=== PATIENT | male | born 1935 | race Caucasian/White ===

== ENCOUNTER 2016-05-09 08:25 | Emergency (ER) | payer OTHER ==
[2016-05-09] MEDS ORDERED: HYDROmorphone 0.5 MG/0.5 ML Syringe IVPUSH ONE (08:36)
[2016-05-09] MEDS ORDERED: Metoclopramide 10 MG/2 ML SDV IVPUSH ONE (08:36)
--- NOTE | 2016-05-09 08:37 | EDM.PDOC ---
ED HPI Trauma - General Chief Complaint: Trauma Stated Complaint: L SHOULDER INJURY Time Seen by Provider: 05/09/16 08:35 Source: Reports: Patient History Limitations: Reports: No limitations - History of Present Illness INITIAL COMMENTS - FREE TEXT/NARRATIVE: 80-year-old male presents the ED after slipping and falling on ice outside his home this morning. He fell hard on the left side of his shoulder. Obvious dislocation of the anterior aspect of his left shoulder. He states that he did not hit his head there was no loss of consciousness. He denies any rib pain or trouble breathing. No pain in his mid back or lower back or left hip. He walked in the is if he was in no pain at all. He was waiting for the bus to pick him up to take him to [place] for his eye appointment. Sees Dr. 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 He was to catch a bus to [place] for a clinic appointment when he slipped and fell on the ice. Symptom Onset Date: 05/09/16 Symptom Onset Time: 07:45 Occurred When: just prior to arrival Occurred Where: other Method of Injury: fall Severity: moderate Pain/Injury Location: Reports: upper extremity, left (Left shoulder) Consciousness: Reports: no loss of consciousness, remembers incident Associated Symptoms: Reports: no other symptoms Allergies/ADRs: Allergies No Known Allergies Allergy (Verified 05/09/16 08:53) Home Medications: Ambulatory Orders Aspirin [Ecotrin] 1 tab PO DAILY 05/09/16 [Confirmed 05/09/16] Cholecalciferol (Vitamin D3) [D3 Dots] 1 tab PO DAILY 05/09/16 [Confirmed ] Dextran 70/Hypromellose [Artificial Tears] 2 drop EYEBOTH DAILY 05/09/16 [ Confirmed 05/09/16] Fluticasone Propionate [Flovent] 2 spray NASBOTH DAILY 05/09/16 [Confirmed 05/09] Latanoprost [Xalatan 0.005% Ophth Soln] 2.5 ml EYEBOTH BEDTIME 05/09/16 [ Confirmed 05/09/16] Lisinopril [Prinivil] 20 mg PO DAILY 05/09/16 [Confirmed 05/09/16] Multivitamin [Multivitamins] 1 tab PO DAILY 05/09/16 [Confirmed 05/09/16] Mupirocin 1 applic TOP BID 05/09/16 [Confirmed 05/09/16] Omeprazole 20 mg PO DAILY 05/09/16 [Confirmed 05/09/16] Psyllium [Metamucil] 0.52 gm PO DAILY 05/09/16 [Confirmed 05/09/16] Ranitidine [Zantac] 150 mg PO DAILY 05/09/16 [Confirmed 05/09/16] oxyCODONE HCl/Acetaminophen [Percocet 5-325 mg Tablet] 1 - 2 each PO Q4H PRN # 16 tablet 05/09/16 Past Medical History HEENT History: Reports: Glaucoma, Other (see below) (Excision of lesion right conjunctiva with some concerns of malignancy. This put drops in his eyes 4 times daily for 4 months. In fact this is where he was going today to see Dr. 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 in [place] by bus.) Cardiovascular History: Reports: Hypertension Genitourinary History: Reports: BPH, Other (see below) (Nocturia usually 3 or 4 times daily nightly.) Musculoskeletal History: Reports: Arthritis, Back pain, chronic, Neck pain, chronic (Neck bothers him at x2), Osteoarthritis (Involving his knees and hips.) Social & Family History - Living Situation & Occupation Occupation: retired Review of Systems - Review of Systems Review Of Systems: See Below Constitutional: Denies: chills, diaphoresis, fever, weakness Eyes: Reports: no symptoms Ears: Reports: no symptoms Nose: Reports: no symptoms Mouth/Throat: Reports: no symptoms Respiratory: Reports: No Symptoms Cardiovascular: Reports: no symptoms GI/Abdominal: Reports: No symptoms Genitourinary: Reports: other Musculoskeletal: Reports: shoulder pain (Left side see history present illness) , arm pain Skin: Reports: no symptoms Neurological: Reports: No Symptoms (Urinary frequency. No treated for x3) Psychiatric: Reports: no symptoms Trauma Exam - Physical Exam Exam: See Below Exam Limited By: No limitations General Appearance: Reports: alert, WD/WN, no apparent distress Head: Reports: atraumatic, normocephalic Throat/Mouth: Reports: Normal inspection, Normal lips, Normal teeth, Normal gums , Normal oropharynx Neck: Reports: non-tender, full range of motion, normal alignment, normal inspection Respiratory Exam: Reports: no respiratory distress, lungs clear (Decreased breath sounds to both posterior lung corrales.), no accessory muscle use, chest non-tender, decreased breath sounds. Denies: rales, rhonchi, wheezing Cardiovascular: Reports: regular rate, rhythm, no edema, no gallop, no murmur, no rub GI/Abdominal: Reports: normal bowel sounds, soft, non tender, no organomegaly, other (Scaphoid abdomen) Extremities: Reports: other (Obvious anterior dislocation of the left humerus. The distal radial and ulnar pulses present. Has some paresthesias in the distribution of the median nerve in the right hand.) Neurologic: Reports: alert, normal mood/affect, oriented x 3 Skin: Reports: Normal color, Warm/dry - Vincenzo Coma Score Best Eye Response (Vincenzo): (4) open spontaneously Best Verbal Response (Vincenzo): (5) oriented Best Motor Response (Vincenzo): (6) obeys commands Vincenzo Total: 15 ED TRAUMA EXTREMITY PROCEDURES - Joint Reduction Site: shoulder (L) Sedation: conscious sedation Technique: traction/counter traction Number of Attempts: 1 Post-reduction imaging: completely reduced Joint Reduction Complications: No ED PROCEDURAL SEDATION - Pre Procedure Indications: shoulder dislocation Preparations: procedure explained, consent signed, oxygen, continuous pulse oximeter, suction, continuous electronic device monitor, constant attendance - Physical Exam Airway: normal anatomy Cardiovascular: normal heart sounds Respiratory: normal breath sounds Neurological: alert, mild distress Meilampati Classification: 1 (soft palate, anterior/posterior tonsillar pillars , uvula visible) - Procedure Sedation Sedation: versed (parenteral) (3 mg), fentanyl (100 mcg) ASA Classification: 2 (Patient with a mild systemic disease) - Intra Procedure Condition during procedure: moderately sedated Complications: none Reversal: none - Post Procedure Condition after procedure: lethargic - Discharge Condition Patient returned to pre-procedure baseline: Yes Alert prior to discharge: Yes Ambulatory with assistance: Yes Vital signs normal: Yes Time spent with sedated patient: 10 min Course - Vital Signs Last Recorded V/S: Last Vital Signs Temp 36.4 C 05/09/16 08:54 Pulse 58 L 05/09/16 08:54 Resp 18 05/09/16 08:54 BP 142/73 H 05/09/16 08:54 Pulse Ox 100 05/09/16 08:54 - Orders/Labs/Meds Orders: Active Orders 24 hr Category Date Time Status Shoulder Comp Lt [CR] Stat Exams 05/09/16 08:36 Taken Shoulder Comp Lt [CR] Stat Exams 05/09/16 09:25 Taken Sodium Chloride 0.9% [Normal Saline] 1,000 ml Med 05/09/16 08:45 Active IV ASDIRECTED Medication Orders Sodium Chloride (Normal Saline) 1,000 mls @ 125 mls/hr IV ASDIRECTED LUZ Meds: Medications Generic Name Dose Route Start Last Admin Trade Name Freq PRN Reason Stop Dose Admin Sodium Chloride 1,000 mls @ 125 mls/hr 05/09/16 08:45 Normal Saline IV ASDIRECTED LUZ Discontinued Medications Generic Name Dose Route Start Last Admin Trade Name Freq PRN Reason Stop Dose Admin Fentanyl 100 mcg 05/09/16 08:40 05/09/16 09:00 Sublimaze IVPUSH 05/09/16 08:41 100 mcg ONETIME ONE Administration Hydromorphone HCl 0.5 mg 05/09/16 08:36 05/09/16 08:45 Dilaudid IVPUSH 05/09/16 08:37 0.5 mg ONETIME ONE Administration Metoclopramide HCl 7.5 mg 05/09/16 08:36 05/09/16 09:00 Reglan IVPUSH 05/09/16 08:37 7.5 mg ONETIME ONE Administration Midazolam HCl 5 mg 05/09/16 08:40 05/09/16 09:13 Versed 1 Mg/Ml IVPUSH 05/09/16 08:41 Not Given ONETIME ONE Midazolam HCl Confirm 05/09/16 08:45 05/09/16 09:14 Versed 1 Mg/Ml Administered 05/09/16 08:46 Not Given Dose 2 mg .ROUTE .STK-MED ONE Midazolam HCl Confirm 05/09/16 08:59 05/09/16 09:14 Versed 1 Mg/Ml Administered 05/09/16 09:00 Not Given Dose 6 mg .ROUTE .STK-MED ONE Midazolam HCl 4 mg 05/09/16 09:00 05/09/16 09:00 Versed 1 Mg/Ml IVPUSH 05/09/16 09:01 4 mg ONETIME ONE Administration - Radiology Interpretation Free Text/Narrative:: 80-year-old male presents the ED after slipping and falling on the ice. He has suffered a valgus injury to his left shoulder. Clinically it appears to be anteriorly dislocated. Plan IV Dilaudid 0.5 mg IV with Reglan 7.5 mg IV. He had a couple pieces of toast about 0630 hours this morning. X-rays of the shoulder will be done to confirm no fractures before manipulation as carried out. Tentatively he'll require manipulation and reduction of the dislocation under conscious sedation with the use of fentanyl and Versed. - Re-Assessments/Exams Free Text/Narrative Re-Assessment/Exam: 05/09/16: 0950: Postreduction films revealed return of to anatomical position of his left humeral head. There are degenerative changes along the in Aspect of the glenoid and possible mild glenoid tear in this area. There is mild arthritic changes at the acromioclavicular joint as well. He is recovered well from the conscious sedation drinking fluids and speaks completely normally. He will be placed in a shoulder immobilizer with a view to followup with Dr. Tryo orthopedic surgeon in 10-12 days time. 05/09/16 10:42 pills per low back to himself. He is immobilized with a shoulder immobilizer on the left side. Of note he is left-hand dominant. Heck here to help him get home. Departure - Departure Time of Disposition: 10:40 Disposition: Home, Self-Care 01 Condition: fair Clinical Impression: Anterior dislocation of left shoulder Qualifiers: Encounter type: initial encounter Qualified Code(s): S43.015A - Anterior dislocation of left humerus, initial encounter Prescriptions: oxyCODONE HCl/Acetaminophen [Percocet 5-325 mg Tablet] 1 - 2 each PO Q4H PRN # 16 tablet PRN Reason: pain relief. Instructions: Shoulder Dislocation, [id number] Referrals: Preeti Gomez DO [Primary Care Provider] - Additional Instructions: Evaluation in the emergency room this morning after slipping and falling on the ice outside her home. Suffered an injury to your left shoulder. X-ray confirmed an anterior dislocation of the shoulder without any broken bones. He therefore underwent conscious sedation with the use of fentanyl and Versed to provide conscious sedation and procedure to replace the shoulder back in its anatomical position. X-rays done after the procedure revealed normal return of the humeral head to its anatomical position. Treatment is shoulder immobilization for the next 10-12 days. Please arrange followup with Dr. Troy orthopedic surgeon on the other side of the hospital. Please call [phone] to arrange an appointment in 10-12 days time. Ideally ice pack to the anterior aspect of the shoulder for one half hour out of every 4 hours today and tomorrow would be useful to reduce swelling. May use Motrin 600 mg every 6 hours as needed for relief of pain. Otherwise Percocet tablet 5-25 one or 2 every 4-6 hours may also be utilized for pain relief. - My Orders Last 24 Hours: My Active Orders 05/09/16 08:36 Shoulder Comp Lt [CR] Stat 05/09/16 08:45 Sodium Chloride 0.9% [Normal Saline] 1,000 ml IV ASDIRECTED 05/09/16 09:25 Shoulder Comp Lt [CR] Stat - Assessment/Plan Last 24 Hours: My Active Orders 05/09/16 08:36 Shoulder Comp Lt [CR] Stat 05/09/16 08:45 Sodium Chloride 0.9% [Normal Saline] 1,000 ml IV ASDIRECTED 05/09/16 09:25 Shoulder Comp Lt [CR] Stat
[2016-05-09] MEDS ORDERED: fentaNYL 100 MCG/2 ML SDV IVPUSH ONE (08:40)
[2016-05-09] MEDS ORDERED: Midazolam 1 MG/ML 5 ML SDV IVPUSH ONE (08:40)
[2016-05-09] MEDS ORDERED: Midazolam 1 MG/ML 2 ML SDV ONE ×2 (08:45→08:59)
[2016-05-09] MEDS ORDERED: Sodium Chloride 0.9% 1,000 ML IV SCH (08:45)
[2016-05-09] MEDS ORDERED: Midazolam 1 MG/ML 2 ML SDV IVPUSH ONE (09:00)
[2016-05-09 09:09] VITALS: BP 142/73
--- NOTE | 2016-05-09 11:30 | CR ---
Left shoulder: Three views of the left shoulder were obtained. Comparison: Previous shoulder study performed earlier on the same. Previous dislocation has been reduced. Mild degenerative spurring is seen within the glenohumeral joint. Osteopenia is seen. Impression: 1. Previous dislocation has been reduced. 2. Other incidental findings. Diagnostic code #2
--- NOTE | 2016-05-09 11:30 | CR ---
Left shoulder: Three views of the left shoulder were obtained. Comparison: No previous study. Anterior dislocation is seen. No discrete fracture or other bony abnormality is seen. Impression: 1. Anterior dislocation of the left shoulder. Diagnostic code #3
== END 2016-05-09 11:02 | disposition home or self-care (01) ==
LOC: JD.ED 08:25
DX: S43.015A Anterior dislocation of left humerus, initial encounter (principal); W00.0XXA Fall on same level due to ice and snow, initial encounter; Y92.008 Other place in unspecified non-institutional (private) residence as the place of occurrence of the external cause; I10 Essential (primary) hypertension; M17.0 Bilateral primary osteoarthritis of knee; M16.0 Bilateral primary osteoarthritis of hip; Z79.899 Other long term (current) drug therapy; Z79.82 Long term (current) use of aspirin
CPT/HCPCS: 23650; 73030; 96361; 96374; 96375; 99152; 99283; J1170; J2250; J2765; J3010; 99284

== ENCOUNTER 2018-03-09 13:34 | Emergency (ER) | payer OTHER ==
--- NOTE | 2018-03-09 14:21 | EDM.PDOC ---
ED HPI GENERAL MEDICAL PROBLEM - General Chief Complaint: Skin Complaint Stated Complaint: CYST ON THE BACK Time Seen by Provider: 03/09/18 13:46 Source of Information: Reports: Patient, RN Notes Reviewed History Limitations: Reports: No Limitations - History of Present Illness INITIAL COMMENTS - FREE TEXT/NARRATIVE: The patient states that he has had a lesion on his back for about 2 weeks. Initially there was some discomfort with it, which is how he discovered it, but it has since become painless. The patient states that he has had numerous cystic lesions, primarily to his buttocks, but also to his posterior thighs, since he was a teenager. At one point, he even had surgical excision with skin grafting. He states that he is under the care of a Inspector Line, who has had him on doxycycline for the past 1.5 to 2 years. The patient states that he was told by the [facility] to come here, that approval has been given for him to have surgical excision. The patient was not instructed to go the surgeon, however. It appears that he was instructed to go to the ED, and that we would then arrange to have the surgeon see the patient. No recent fever. The patient[facility] P[facility] is at the [facility]. - Related Data Allergies Allergy/AdvReac Type Severity Reaction Status Date / Time No Known Allergies Allergy Verified 05/09/16 08:53 Home Meds: Home Meds Aspirin [Ecotrin] 1 tab PO DAILY 05/09/16 [History] Cholecalciferol (Vitamin D3) [D3 Dots] 1 tab PO DAILY 05/09/16 [History] Dextran 70/Hypromellose [Artificial Tears] 2 drop EYEBOTH DAILY 05/09/16 [ History] Fluticasone Propionate [Flovent] 2 spray NASBOTH DAILY 05/09/16 [History] Latanoprost [Xalatan 0.005% Ophth Soln] 2.5 ml EYEBOTH BEDTIME 05/09/16 [History ] Lisinopril [Prinivil] 20 mg PO DAILY 05/09/16 [History] Multivitamin [Multivitamins] 1 tab PO DAILY 05/09/16 [History] Mupirocin 1 applic TOP BID 05/09/16 [History] Omeprazole 20 mg PO DAILY 05/09/16 [History] Psyllium [Metamucil] 0.52 gm PO DAILY 05/09/16 [History] Ranitidine [Zantac] 150 mg PO DAILY 05/09/16 [History] oxyCODONE HCl/Acetaminophen [Percocet 5-325 mg Tablet] 1 - 2 each PO Q4H PRN # 16 tablet 05/09/16 [Rx] Past Medical History HEENT History: Reports: Glaucoma, Macular Degeneration Cardiovascular History: Reports: Heart Failure, Hypertension, Other (See Below) Other Cardiovascular History: aortiv valve stenosis, mitral valve regurgitation , tricuspid valve regurgitation Gastrointestinal History: Reports: Cholelithiasis, GERD Genitourinary History: Reports: BPH Musculoskeletal History: Reports: Back Pain, Chronic, Fracture (left forearm x 2 ), Neck Pain, Chronic, Osteoarthritis Dermatologic History: Reports: Other (See Below) Other Dermatologic History: actinic keratosis; cystic acne vulgaris, sebaceous cyst - Past Surgical History HEENT Surgical History: Reports: Cataract Surgery, Tonsillectomy GI Surgical History: Reports: Colonoscopy Male Surgical History: Reports: TURP-Transurethral Resection of Prostate Dermatological Surgical History: Reports: Skin Graft Social & Family History - Family History Family Medical History: Noncontributory - Tobacco Use Smoking Status *Q: Former Smoker Years of Tobacco use: 24 Packs/Tins Daily: 0.5 Month/Year Tobacco Last Used: Quit 1978 - Caffeine Use Caffeine Use: Reports: Coffee, Soda, Tea - Alcohol Use Alcohol Use History: Yes Alcohol Use Frequency: Socially - Recreational Drug Use Recreational Drug Use: No - Living Situation & Occupation Living situation: Reports: , Alone Occupation: Retired ED ROS GENERAL - Review of Systems Review Of Systems: ROS reveals no pertinent complaints other than HPI. ED EXAM, SKIN/RASH Exam: See Below Exam Limited By: No Limitations General Appearance: Alert, WD/WN, No Apparent Distress Skin: Warm, Dry, Intact, Other (Numerous open comedos (blackheads) on the patient's back. There is an oval area of deep erythema on the right mid-back measuring approximately 6 cm x 4 cm, with an approximately 3 cm circular area of firm induration within the area of erythema. Minimal tenderness. No visible drainage, even when pressing on the indurated area.) Course - Vital Signs Last Recorded V/S: Last Vital Signs Temp 36.4 C 03/09/18 13:46 Pulse 81 03/09/18 13:46 Resp 20 03/09/18 13:46 BP 170/107 H 03/09/18 13:46 Pulse Ox 100 03/09/18 13:46 - Re-Assessments/Exams Free Text/Narrative Re-Assessment/Exam: 03/09/18 14:[address] Holland at 14:15. If the patient goes to his clinic, and does not mind waiting, he can be seen today. Departure - Departure Time of Disposition: 14:20 Disposition: Home, Self-Care 01 Condition: Good Clinical Impression: Skin lesion of back - Discharge Information *PRESCRIPTION DRUG MONITORING PROGRAM REVIEWED*: Not Applicable *COPY OF PRESCRIPTION DRUG MONITORING REPORT IN PATIENT GOLD: Not Applicable Referrals: Annalise Spencer MD [Primary Care Provider] - Baldo Holland MD [Physician] - Forms: ED Department Discharge Additional Instructions: You were seen in the emergency room for a cystic lesion on your back for the past 2 weeks. Your case was discussed with the surgeon Dr. Holland, who can see you in his clinic today, if you do not mind waiting. If any other problems, please do not hesitate to return to the ER.
== END 2018-03-09 14:36 | disposition home or self-care (01) ==
LOC: JD.ED 13:34
DX: L98.8 Other specified disorders of the skin and subcutaneous tissue (principal); I11.0 Hypertensive heart disease with heart failure; I50.9 Heart failure, unspecified; K21.9 Gastro-esophageal reflux disease without esophagitis; Z87.891 Personal history of nicotine dependence; Z79.82 Long term (current) use of aspirin; Z79.899 Other long term (current) drug therapy
CPT/HCPCS: 99283